=== PATIENT | male | born 1950 | race Caucasian/White ===

== ENCOUNTER 2021-07-30 12:28 | Inpatient (IN) | payer MEDICARE, OTHER ==
[~2021-07-30] VITALS: Ht 175.3 cm; Wt 107.2 kg
[~2021-07-30 12:28] MED LIST: TERBINAFINE HC250 MG PO
[2021-07-30 13:27] LABS: HEMOGLOBIN 15.1 gm/dl (14.0-17.5); RED BLOOD COUNT 4.46 M/UL (4.20-5.50); WHITE BLOOD COUNT 13.4 K/UL (4.5-11.0)
[2021-07-30 13:53] LABS: BUN/CREATININE RATIO 22 (0-10)
[2021-07-30] MEDS ORDERED: TOUJEO MAX300 UNIT/1 SQ (16:23)
[2021-07-30] MEDS ORDERED: HUMALOG100 UNIT/3 SC (16:25)
[2021-07-30] MEDS ORDERED: KETOCONAZOLE15 GM TOP (16:26)
[2021-07-30] MEDS ORDERED: FENOFIBRATE48 MG PO (16:28)
[2021-07-30] MEDS ORDERED: NISOLDIPINE17 MG PO (16:28)
[2021-07-30] MEDS ORDERED: VALSARTAN-HCTZ1 EAC3 PO (16:29)
[2021-07-30] MEDS ORDERED: DULOXETINE HCL60 MG PO (16:29)
[2021-07-30] MEDS ORDERED: PROTONIX 40 MG40 M1 PO (16:29)
[2021-07-30] MEDS ORDERED: VITAMIN D325 MCG PO (16:30)
[2021-07-30] MEDS ORDERED: ALLOPURINOL300 MG PO (16:30)
[2021-07-30] MEDS ORDERED: VITAMIN B-121000 MCG PO (16:31)
[2021-07-30] MEDS ORDERED: PREVACID 24HR15 MG PO (16:31)
[2021-07-30] MEDS ORDERED: TESTOSTERONE75 G1 TOP (16:45)
[2021-07-31 02:04] LABS: HEMOGLOBIN 13.9 gm/dl (14.0-17.5); RED BLOOD COUNT 4.18 M/UL (4.20-5.50)
[2021-07-31 02:13] LABS: WHITE BLOOD COUNT 9.7 K/UL (4.5-11.0)
--- NOTE | 2021-07-31 10:43 | NUR ---
NEUROLOGY CONSULT CALLED. AWARE.
[2021-08-01 01:34] LABS: HEMOGLOBIN 14.2 gm/dl (14.0-17.5); RED BLOOD COUNT 4.17 M/UL (4.20-5.50); WHITE BLOOD COUNT 9.2 K/UL (4.5-11.0)
--- NOTE | 2021-08-01 16:18 | NUR ---
PT COMPLAINING OF DISCOLORATION TO BILATERAL LOWER EXTREMITIES. PULSES PRESENT BILATERALLY BUT DIMINISHED. LEGS COOL AND PURPLE TO TOUCH. NOTIFIED DR GARCIA OF PTS COMPLAINTS AND FINDINGS.
[2021-08-02 02:26] LABS: HEMOGLOBIN 13.1 gm/dl (14.0-17.5); RED BLOOD COUNT 3.92 M/UL (4.20-5.50); WHITE BLOOD COUNT 7.7 K/UL (4.5-11.0)
[2021-08-02 02:49] LABS: BUN/CREATININE RATIO 23 (0-10)
[2021-08-03] MEDS ORDERED: HYDROCODON-ACE1 EAC4 PO (10:15)
[2021-08-03] MEDS ORDERED: DIOVAN320 MG PO (10:20)
== END 2021-08-03 14:18 | disposition home or self-care (01) | DRG 683 ==
LOC: ER1 12:28 → PROG CARE 15:19 → CDU 15:19 → PROG CARE 20:37
PROVIDERS: Internal Medicine; Nurse Practitioner; ADMIT Internal Medicine
DX: N17.9 Acute kidney failure, unspecified (principal); M62.82 Rhabdomyolysis; F11.20 Opioid dependence, uncomplicated; Z20.822 Contact with and (suspected) exposure to COVID-19; M50.30 Other cervical disc degeneration, unspecified cervical region; M51.36 Other intervertebral disc degeneration, lumbar region; F10.10 Alcohol abuse, uncomplicated; E66.9 Obesity, unspecified; E78.1 Pure hyperglyceridemia; F17.220 Nicotine dependence, chewing tobacco, uncomplicated; I12.9 Hypertensive chronic kidney disease with stage 1 through stage 4 chronic kidney disease, or unspecified chronic kidney disease; N18.9 Chronic kidney disease, unspecified; E11.22 Type 2 diabetes mellitus with diabetic chronic kidney disease; E53.8 Deficiency of other specified B group vitamins; K21.9 Gastro-esophageal reflux disease without esophagitis; W18.30XA Fall on same level, unspecified, initial encounter; Y92.009 Unspecified place in unspecified non-institutional (private) residence as the place of occurrence of the external cause; Z88.2 Allergy status to sulfonamides; Z68.34 Body mass index [BMI] 34.0-34.9, adult
CPT/HCPCS: 0240U; 36415; 36600; 70450; 70551; 71045; 72125; 72131; 73502; 73552; 73590; 73610; 73630; 80053; 80307; 81001; 82550; 82553; 82803; 83735; 84484; 85025; 85027; 93005; 97110; 97116-GP-CQ; 97161; 99285; G0480; J0360; J1644; J3475; J7030